=== PATIENT | female | born 1990 | race Two or more races ===

== ENCOUNTER 2016-09-01 18:07 | Emergency (ER) | payer OTHER ==
[~2016-09-01] VITALS: Ht 162.6 cm; Wt 63.5 kg
[~2016-09-01 18:07] MED LIST: PRENCAP15
[2016-09-01 18:25] VITALS: BP 107/66
== END 2016-09-01 22:13 | disposition home or self-care (01) ==
LOC: ER 18:09
DX: J02.9 Acute pharyngitis, unspecified (principal); J34.9 Unspecified disorder of nose and nasal sinuses
CPT/HCPCS: 99283; J7030